=== PATIENT | female | born 1955 | race Caucasian/White ===

== ENCOUNTER 2018-05-08 19:30 | Emergency (ER) | payer OTHER ==
--- OUTSIDE RECORDS SUMMARY | 2018-05-08 19:40 | XMS REPORT ---
:1955 External Reference #:[id number] Author Organization [facility] Address [address], [address] [place] [address] Phone [phone] Care Team Providers Name Role Phone Nikita Maldonado M.D. 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 Active Onset: 11/13/2016 Radial styloid tenosynovitis Nikita Maldonado M.D. Active Onset: 08/27/2017 Disorder of shoulder Nikita Maldonado M.D. Active Onset: 12/01/2017 Bicipital tenosynovitis Nikita Maldonado M.D. Active Onset: 04/14/2018 Essential hypertension RODGER Almanza Active Onset: 02/03/2018 Muscle pain Jacquelyn Sherman MD Active Onset: 02/03/2018 Disorder of bursa of shoulder region Jacquelyn Sherman MD Active Family History Date Family Member(s) Problem(s) Comments : (age 69 Father due to Parkinson's Years) Disease Father due to Unknown Causes () Mother due to Mouth Cancer () Mother Hypertension Mother Oral Cancer Children 4 First Son Oral Cancer Siblings 2 : (age 46 First Brother due to Skin Cancer Years) First Sister Skin Cancer Maternal Grandmother due to Mouth Cancer () Social History Type Date Description Comments Marital Status Lives With Daughters Diet Patient follows no dietary restrictions Occupation [address] Patient drives Cigarette Use Never Smoked Cigarettes ETOH Use Rarely consumes alcohol Smoking Patient has never smoked Allergies, Adverse Reactions, Alerts Date Description Reaction Status Severity Comments 07/24/2016 Bactrim active Medications Medication Date Status Form Strength Qnty SIG Indications Ordering Provider Lisinopril-Hyd Active Tablets 10-12.5mg 30tabs 1 by I10 Rosibel parnelllorothiazi Anabel White M.D. de every day Zyrtec Allergy Active Capsules 10mg 30caps 1 by J20Kaylene White M.D. every day Ibuprofen Active Tablets 400mg 1 tab Unknown 000 every 6 hours as needed Fluconazole Hx Tablets 150mg 2tabs 1 tab by N76.0 Rosibel Little - madelyn White M.D. today, 018 repeat in 1 week. Benzonatate Hx Capsules 200mg 30caps 1 tab by J20.Ismael Gleason 017 - madelyn White M.D. three 018 times a day Nasonex Hx Suspension 50mcg/Act 17gm 1 spray J2Jesus.Ismael Gleason 017 - each Lyndsey White nare 017 twice a day for 1 week, then reduce to once daily. Fluticasone Hx Suspension 50mcg/Act 9.900m 1 spray J20.9 Rosibel Propionate 017 - l to each Lyndsey White nare 018 every day Cefdinir Hx Capsules 300mg 20caps 1 tab by J01.00 Rosibel Schaffer - madelyn White M.D. twice a 017 day No Active Hx Unknown Medications 017 - 017 [place] Hx Tablets 5-325mg 25tabs 1 by Jd 017 - mouth Marianna, every 6 M.D. 017 hour as needed pain No Active Hx Unknown Medications 017 - 017 [place] Hx Tablets 5-325mg 40tabs 1 by Jd 016 - mouth Marianna, every M.D. 017 4-6 hour as needed pain Tylenol With Hx Tablets 300-30mg Unknown Codeine #3 000 - 016 Medications Administered in Office Medication Date Status Form Strength Qnty SIG Indications Ordering Provider Betamethasone Injection Natasha Acetate & Sodium 2018 Tino, Phosphate 3 MG PA Of Each Immunizations CPT Code Status Date Vaccine Lot # 11387 Given 07/28/2017 Influenza Virus Vaccine Quadrivalent Iiv4 Split Preser Free Id Vital Signs Date Vital Result Comment 04/14/2018 BP Systolic Sitting Right Arm 158 mmHg BP Diastolic Sitting Right Arm 78 mmHg Body Temperature 97.8 F Heart Rate 94 /min Height 62.5 inches 5'2.50" Weight 184.12 lb BMI (Body Mass Index) 33.1 kg/m2 BSA (Body Surface Area) 1.86 m2 [place] body weight in kilograms 51 O2 % BldC Oximetry 98 % 04/01/2018 BP Systolic Sitting Left Arm 134 mmHg BP Diastolic Sitting Left Arm 77 mmHg Body Temperature 97.6 F Heart Rate 75 /min Respiratory Rate 17 /min Height 62 inches 5'2" Weight 186.00 lb BMI (Body Mass Index) 34.0 kg/m2 BSA (Body Surface Area) 1.85 m2 [place] body weight in kilograms 50 O2 % BldC Oximetry 97 % 03/19/2018 BP Systolic 190 mmHg BP Diastolic 85 mmHg Body Temperature 97.6 F Heart Rate 62 /min Respiratory Rate 15 /min Height 62 inches 5'2" Weight 186.00 lb BMI (Body Mass Index) 34.0 kg/m2 BSA (Body Surface Area) 1.85 m2 [place] body weight in kilograms 50 O2 % BldC Oximetry 97 % room air Pain Level 4 02/03/2018 BP Systolic Sitting Left Arm 182 mmHg BP Diastolic Sitting Left Arm 93 mmHg Body Temperature 98.2 F Heart Rate 70 /min Height 63.5 inches 5'3.50" Weight 185.00 lb BMI (Body Mass Index) 32.3 kg/m2 BSA (Body Surface Area) 1.88 m2 [place] body weight in kilograms 53 01/28/2018 BP Systolic 188 mmHg BP Diastolic 97 mmHg Height 63.5 inches 5'3.50" Weight 182.00 lb BMI (Body Mass Index) 31.7 kg/m2 BSA (Body Surface Area) 1.87 m2 [place] body weight in kilograms 53 12/17/2017 BP Systolic Sitting Left Arm 148 mmHg BP Diastolic Sitting Left Arm 57 mmHg Heart Rate 73 /min Respiratory Rate 18 /min Height 63.5 inches 5'3.50" Weight 182.00 lb BMI (Body Mass Index) 31.7 kg/m2 BSA (Body Surface Area) 1.87 m2 [place] body weight in kilograms 53 11/10/2017 BP Systolic Sitting Right Arm 172 mmHg BP Diastolic Sitting Right Arm 84 mmHg Body Temperature 97.7 F Heart Rate 78 /min Height 63.5 inches 5'3.50" Weight 185.00 lb BMI (Body Mass Index) 32.3 kg/m2 BSA (Body Surface Area) 1.88 m2 [place] body weight in kilograms 53 O2 % BldC Oximetry 98 % 10/06/2017 BP Systolic 169 mmHg BP Diastolic 91 mmHg Body Temperature 97.3 F Heart Rate 89 /min Respiratory Rate 16 /min Height 63.5 inches 5'3.50" Weight 190.00 lb BMI (Body Mass Index) 33.1 kg/m2 BSA (Body Surface Area) 1.90 m2 [place] body weight in kilograms 53 10/05/2017 BP Systolic 142 mmHg BP Diastolic 84 mmHg Body Temperature 97.8 F Heart Rate 109 /min Respiratory Rate 18 /min Height 63.5 inches 5'3.50" Weight 191.38 lb BMI (Body Mass Index) 33.4 kg/m2 BSA (Body Surface Area) 1.91 m2 [place] body weight in kilograms 53 O2 % BldC Oximetry 97 % 09/23/2017 BP Systolic 152 mmHg BP Diastolic 90 mmHg Body Temperature 97.0 F Heart Rate 86 /min Height 63.5 inches 5'3.50" Weight 190.00 lb BMI (Body Mass Index) 33.1 kg/m2 BSA (Body Surface Area) 1.90 m2 [place] body weight in kilograms 53 O2 % BldC Oximetry 97 % 07/28/2017 BP Systolic Sitting Right Arm 172 mmHg BP Diastolic Sitting Right Arm 90 mmHg Body Temperature 97.7 F Heart Rate 68 /min Height 63.5 inches 5'3.50" Weight 190.38 lb BMI (Body Mass Index) 33.2 kg/m2 BSA (Body Surface Area) 1.90 m2 [place] body weight in kilograms 53 07/24/2016 BP Systolic Sitting Right Arm 154 mmHg BP Diastolic Sitting Right Arm 80 mmHg Height 63.25 inches 5'3.25" Weight 189.00 lb BMI (Body Mass Index) 33.2 kg/m2 BSA (Body Surface Area) 1.89 m2 [place] body weight in kilograms 53 Results Test Date Test Result H/L Range Note Urine Dipstick 04/14/2018 Ua Color yellow Yellow Ua Clarity clear Clear Ua Leuko trace Negative Ua Nitrite negative Negative Ua Urobilinogen 0.2 0.2 - 1.0 E.U./dL Ua Protein negative Negative Ua PH 6.0 Low 6.5-7.5 Ua Blood negative Negative Ua Specific [place] 1.025 1.010-1.030 Ua Ketones negative Negative Ua Bilirubin negative Negative Ua Glucose negative Negative Procedures Date CPT Code Description Status 03/19/201899564 Injection:Tendon Sheath,Lig. Cyst Completed 01/28/2018 Aspiration/Injection joint Completed intermediate(wrist/ankle/elbow/olbursa 12/01/201712270 Injection:Tendon Sheath,Lig. Cyst Completed 10/06/201749873 Injection:Tendon Sheath,Lig. Cyst Completed 05/11/2017 Injection, Tendon Origin/Insertion Completed 05/11/201705162 Injection:Tendon Sheath,Lig. Cyst Completed 11/13/201642826 Injection:Tendon Sheath,Lig. Cyst Completed 11/12/201611087 Radiology, Shoulder: Two Views (Sso) Completed 11/12/201623054 Injection:Tendon Sheath,Lig. Cyst Completed 10/02/201680531 Injection, Tendon Origin/Insertion Completed 09/30/2016 16731 Radiology, Shoulder: Two Views (Sso) Completed 08/25/2016 30561 Radiology, Shoulder: Two Views (Sso) Completed 08/07/2016 67600 Radiology, Hand: Two Views Completed 08/07/2016 47598 Radiology, Hand: Two Views Completed 08/07/2016 83861 Radiology, Shoulder: Two Views (Sso) Completed 08/07/2016 43759 Radiology, Shoulder: Two Views (Sso) Completed 07/24/2016 36379 FX Greater Tuberosity W/O Manipulation Completed 07/24/2016 79033 Humerus Fracture closed w/o manipulation Completed 09/28/2014 Mammogram Completed 09/28/2012 Colonoscopy Completed 05/02/2011 23275 Holter Monitor 24HR Inter/Report Completed Encounters Type Date Location Provider CPT E/M Dx Office Visit 04/01/2018 10:30a [place] [address] M65.4 M75.102 Office Visit 02/03/2018 10:30a Physical Medicine [place] [address] M75.22 Infectious Disease M77.12 M75.102 M79.1 Office Visit 01/28/2018 10:45a Orthopaedic Office Nikita Maldonado M.D. 27489 M77.12 Office Visit 12/17/2017 11:15a Orthopaedic Office Nikita Maldonado M.D. 46481 M75.22 Office Visit 12/01/2017 10:45a Orthopaedic Office Nikita Maldonado M.D. 07524 M75.22 Office Visit 11/10/2017 10:30a Family Medicine RODGER Almanza 72163 Z00.01 I10 N76.0 K64.4 Z12.4 Z12.31 Z13.820 Office Visit 10/06/2017 10:45a Orthopaedic Office Nikita Maldonado M.D. 39636 M65.4 M75.42 Office Visit 10/05/2017 10:00a Family Medicine RODGER Almanza 47807 R03.0 Z85.820 J20.9 M75.42 Office Visit 09/23/2017 10:00a Family RODGER Butler 39771 R03.0 Z85.820 J20.9 Office Visit 08/27/2017 10:45a Orthopaedic Office Nikita Maldonado M.D. 90848 M75.42 Office Visit 07/28/2017 1:00p Family RODGER Butler 02217 R03.0 J01.00 Z85.820 Z23 Office Visit 05/11/2017 2:45p Orthopaedic Office Nikita Maldonado M.D. 72787 M77.12 M65.4 Office Visit 01/15/2017 11:00a Orthopaedic Office Nikita Maldonado M.D. 86996 S42.202D S63.650A Office Visit 11/12/2016 10:45a Orthopaedic Office Nikita Maldonado M.D. 65673 S42.202D M65.4 Office Visit 08/07/2016 10:45a Orthopaedic Office RODGER Barrios 53905 S42.202D S63.650A Office Visit 10/25/2012 1:38p [place] [address] 789.00 Plan of Care Future Appointment(s):05/04/2018 8:45 am - Yuli Coffman MD at Operating Room05/13/2018 9:00 am - Yuli Coffman MD at Orthopaedic Vabmbo7504/23/2018 9: 45 am - Yuli Coffman MD at Orthopaedic Ydtrjw4104/14/2018 - BERNA Almanza65.4 Radial styloid tenosynovitis [de Quervain]Comments:Patient is in good health. Low risk for a low risk for surgery. Urine cultures is pending due to leukocytes. Will treat if indicated.I10 Essential (primary) hypertensionComments :Please try to take your medication daily. I am increasing the dose to 20/25. It may cause some dizziness at first. But, this should improve as you get used to being on the medication and this new dose.Watch the salt in the diet and continue to try to exercise and watch salt intake.Follow up:3 tcobrgE29.5 Neoplasm of uncertain behavior of skinComments:It is time for you to go back to the [employer]. \\Please call to set up an appointment with RODGER Shafer on [facility]. [phone].R30.0 DysuriaComments:Clear fluids. Cranberry juice. Limit sugars.Wash and rinse thoroughly. Wipe front to back.Frequent bathroom breaks. Avoid bubble baths. Avoid tight fitting pants and synthetic underwear. Labs are pending. Will treat as indicated.
--- OUTSIDE RECORDS SUMMARY | 2018-05-08 19:40 | XMS REPORT ---
:1955 External Reference #:[id number] Author Organization [facility] Address [address], [address] [place] [address] Phone [phone] Care Team Providers Name Role Phone Nikita Maldonado M.D. 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 Lani Alfonso PA Primary Care Physician Unavailable Payers Type Date Identification Numbers Payment Provider Subscriber Commercial Policy Number: [id number] [employer] Mary Han PayID: [id number] [address] [place] [address] Problems Date Description Provider Status Onset: 07/24/2016 [...] Diet Patient follows no dietary restrictions Occupation [employer] Patient drives Cigarette Use Never Smoked Cigarettes ETOH Use Rarely consumes alcohol Smoking Patient has never smoked Allergies, Adverse Reactions, Alerts Date Description Reaction Status Severity Comments 07/24/2016 Bactrim active Medications Medication Date Status Form Strength Qnty SIG Indications Ordering Provider Lisinopril-Hy 04/16/ Active Tablets 20-25mg 30tabs take one I10 Rosibel drochlorothia 2018 tablet by Lyndesy White mouth every day for high blood pressure Zyrtec 10/05/ Active Capsules 10mg 30caps 1 by mouth J20.Ismael Gleason Allergy 2018 every day Lyndsey White Ibuprofen / Active Tablets 400mg 1 tab Unknown 0000 every 6 hours as needed Lisinopril-Hy 11/10/ Hx Tablets 10-12.5mg 30tabs 1 by mouth I10 Rosibel drochlorothia 2017 - every day Lyndsey White 2017 Fluconazole 11/10/ Hx Tablets 150mg 2tabs 1 tab by N76.0 Rosibel 2017 - mouth Lyndsey White 11/17/ , 2018 repeat in 1 week. Benzonatate 09/23/ Hx Capsules 200mg 30caps 1 tab by Travis Gleason 2016 - mouth Lyndsey White 10/03/ three 2018 times a day Nasonex 09/23/ Hx Suspension 50mcg/Act 17gm 1 spray J2Jesus.Ismael Gleason 2016 - each adri White M.D. 09/23/ twice a 2016 day for 1 week, then reduce to once daily. Fluticasone 09/23/ Hx Suspension 50mcg/Act 9.900m 1 spray to Travis Gleason Propionate 2016 - l each adri White M.D. 10/03/ every day 2018 Cefdinir 07/28/ Hx Capsules 300mg 20caps 1 tab by J01.00 Rosibel 2017 - madelyn White M.D. 08/07/ twice a 2017 day No Active 11/12/ Hx Unknown Medications 2016 - 2016 [place] 10/13/ Hx Tablets 5-325mg 25tabs 1 by madelyn Miles 2016 - every 6 Marianna, 11/11/ hour as M.D. 2016 needed pain No Active 09/30/ Hx Unknown Medications 2016 - 2016 [place] 08/05/ Hx Tablets 5-325mg 40tabs 1 by mouth Jd 2015 - every 4-6 Marianna, 09/29/ hour as M.D. 2016 needed pain Tylenol With / Hx Tablets 300-30mg Unknown Codeine #3 0000 - 2015 Medications Administered in Office Medication Date Status Form Strength Qnty SIG Indications Ordering Provider Betamethasone 03/19/ Injection Natasha Acetate & Sodium 2018 Tino, Phosphate 3 MG PA Of Each Immunizations CPT Code Status Date Vaccine Lot # [id number] Given 07/28/2017 Influenza Virus Vaccine Quadrivalent Iiv4 Split Preser Free Id Vital Signs Date Vital Result Comment 04/23/2018 BP Systolic Sitting Left Arm 99 mmHg BP Diastolic Sitting Left Arm 64 mmHg Body Temperature 97.9 F Heart Rate 73 /min Respiratory Rate 17 /min Height 62.5 inches 5'2.50" Weight 184.00 lb BMI (Body Mass Index) 33.1 kg/m2 BSA (Body Surface Area) 1.86 m2 [place] body weight in kilograms 51 O2 % BldC Oximetry 96 % 04/14/2018 BP Systolic Sitting Right Arm 158 mmHg BP Diastolic Sitting Right Arm 78 mmHg Body Temperature 97.8 F Heart Rate 94 /min Height 62.5 inches 5'2.50" Weight 184.12 lb BMI (Body Mass Index) 33.1 kg/m2 BSA (Body Surface Area) 1.86 m2 [place] body weight in kilograms 51 O2 % BldC Oximetry 98 % 04/01/2018 BP Systolic Sitting Left Arm 134 mmHg BP Diastolic Sitting Left Arm 77 mmHg Body Temperature 97.6 F Heart Rate 75 /min Respiratory Rate 17 /min Height 62 inches 5'2" Weight 186.00 lb BMI (Body Mass Index) 34.0 kg/m2 BSA (Body Surface Area) 1.85 m2 [place] body weight in kilograms 50 O2 % BldC Oximetry 97 % 03/19/2018 BP Systolic 190 mmHg BP Diastolic 85 mmHg Body Temperature 97.6 F Heart Rate 62 /min Respiratory Rate 15 /min Height 62 inches 5'2" Weight 186.00 lb BMI (Body Mass Index) 34.0 kg/m2 BSA (Body Surface Area) 1.85 m2 [place] body weight in kilograms 50 O2 % BldC Oximetry 97 % room air Pain Level 4 02/03/2018 BP Systolic Sitting Left Arm 182 mmHg BP Diastolic Sitting Left Arm 93 mmHg Body Temperature 98.2 F Heart Rate 70 /min Height 63.5 inches 5'3.50" Weight 185.00 lb BMI (Body Mass Index) 32.3 kg/m2 BSA (Body Surface Area) 1.88 m2 [place] body weight in kilograms 53 01/28/2018 BP Systolic 188 mmHg BP Diastolic 97 mmHg Height 63.5 inches 5'3.50" Weight 182.00 lb BMI (Body Mass Index) 31.7 kg/m2 BSA (Body Surface Area) 1.87 m2 [employer] body weight in kilograms 53 12/17/2017 BP Systolic Sitting Left Arm 148 mmHg BP Diastolic Sitting Left Arm 57 mmHg Heart Rate 73 /min Respiratory Rate 18 /min Height 63.5 inches 5'3.50" Weight 182.00 lb BMI (Body Mass Index) 31.7 kg/m2 BSA (Body Surface Area) 1.87 m2 [place] body weight in kilograms 53 11/10/2017 BP Systolic Sitting Right Arm 172 mmHg BP Diastolic Sitting Right Arm 84 mmHg Body Temperature 97.7 F Heart Rate 78 /min Height 63.5 inches 5'3.50" Weight 185.00 lb BMI (Body Mass Index) 32.3 kg/m2 BSA (Body Surface Area) 1.88 m2 [place] body weight in kilograms 53 O2 % BldC Oximetry 98 % 10/06/2017 BP Systolic 169 mmHg BP Diastolic 91 mmHg Body Temperature 97.3 F Heart Rate 89 /min Respiratory Rate 16 /min Height 63.5 inches 5'3.50" Weight 190.00 lb BMI (Body Mass Index) 33.1 kg/m2 BSA (Body Surface Area) 1.90 m2 [place] body weight in kilograms 53 10/05/2017 BP Systolic 142 mmHg BP Diastolic 84 mmHg Body Temperature 97.8 F Heart Rate 109 /min Respiratory Rate 18 /min Height 63.5 inches 5'3.50" Weight 191.38 lb BMI (Body Mass Index) 33.4 kg/m2 BSA (Body Surface Area) 1.91 m2 [place] body weight in kilograms 53 O2 % BldC Oximetry 97 % 09/23/2017 BP Systolic 152 mmHg BP Diastolic 90 mmHg Body Temperature 97.0 F Heart Rate 86 /min Height 63.5 inches 5'3.50" Weight 190.00 lb BMI (Body Mass Index) 33.1 kg/m2 BSA (Body Surface Area) 1.90 m2 [place] body weight in kilograms 53 O2 % BldC Oximetry 97 % 07/28/2017 BP Systolic Sitting Right Arm 172 mmHg BP Diastolic Sitting Right Arm 90 mmHg Body Temperature 97.7 F Heart Rate 68 /min Height 63.5 inches 5'3.50" Weight 190.38 lb BMI (Body Mass Index) 33.2 kg/m2 BSA (Body Surface Area) 1.90 m2 [employer] body weight in kilograms 53 07/24/2016 BP Systolic Sitting Right Arm 154 mmHg BP Diastolic Sitting Right Arm 80 mmHg Height 63.25 inches 5'3.25" Weight 189.00 lb BMI (Body Mass Index) 33.2 kg/m2 BSA (Body Surface Area) 1.89 m2 [place] body weight in kilograms 53 Results Test Date Test Result H/L Range Note Urine Culture 04/14/2018 Urine Culture URETHRAL ZAYRA 1 Quantity 10,000 - 50,000 <SEE NOTE> 1, 2 Urine Dipstick 04/14/2018 Ua Color yellow Yellow Ua Clarity clear Clear Ua Leuko trace Negative Ua Nitrite negative Negative Ua Urobilinogen 0.2 0.2 - 1.0 E.U./dL Ua Protein negative Negative Ua PH 6.0 Low 6.5-7.5 Ua Blood negative Negative Ua Specific [place] 1.025 1.010-1.030 Ua Ketones negative Negative Ua Bilirubin negative Negative Ua Glucose negative Negative 1 R30.0 2 10,000 - 50,000 CFU/mL Procedures Date CPT Code Description Status 03/19/2018 Injection:Tendon Sheath,Lig. Cyst Completed 01/28/2018 Aspiration/Injection joint Completed intermediate(wrist/ankle/elbow/olbursa 12/01/2017 Injection:Tendon Sheath,Lig. Cyst Completed 10/06/2017 Injection:Tendon Sheath,Lig. Cyst Completed 05/11/2017 Injection, Tendon Origin/Insertion Completed 05/11/2017 07372 Injection:Tendon Sheath,Lig. Cyst Completed 11/13/2016 Injection:Tendon Sheath,Lig. Cyst Completed 11/12/2016 77574 Radiology, Shoulder: Two Views (Sso) Completed 11/12/2016 Injection:Tendon Sheath,Lig. Cyst Completed 2016 Injection, Tendon Origin/Insertion Completed 09/30/2016 00197 Radiology, Shoulder: Two Views (Sso) Completed 08/25/2016 14213 Radiology, Shoulder: Two Views (Sso) Completed 08/07/2016 95482 Radiology, Hand: Two Views Completed 08/07/2016 54566 Radiology, Hand: Two Views Completed 08/07/2016 93838 Radiology, Shoulder: Two Views (Sso) Completed 08/07/2016 57440 Radiology, Shoulder: Two Views (Sso) Completed 07/24/2016 95239 FX Greater Tuberosity W/O Manipulation Completed 07/24/2016 47263 Humerus Fracture closed w/o manipulation Completed 09/28/2014 Mammogram Completed 09/28/2012 Colonoscopy Completed 05/02/2011 08005 Holter Monitor 24HR Inter/Report Completed Encounters Type Date Location Provider CPT E/M Dx Office Visit 04/14/2018 3:30p Family Medicine RODGER Almanza 41211 M65.4 I10 D48.5 R30.0 Office Visit 04/01/2018 10:30a [place] [address] M65.4 M75.102 Office Visit 02/03/2018 10:30a Physical Medicine [place] [address] M75.22 Infectious Disease M77.12 M75.102 M79.1 Office Visit 01/28/2018 10:45a Orthopaedic Office Nikita Maldonado M.D. 80915 M77.12 Office Visit 12/17/2017 11:15a Orthopaedic Office Nikita Maldonado M.D. 04203 M75.22 Office Visit 12/01/2017 10:45a Orthopaedic Office Nikita Maldonado M.D. 27047 M75.22 Office Visit 11/10/2017 10:30a Family Medicine RODGER Almanza 01956 Z00.01 I10 N76.0 K64.4 Z12.4 Z12.31 Z13.820 Office Visit 10/06/2017 10:45a Orthopaedic Office Nikita Maldonado M.D. 95670 M65.4 M75.42 Office Visit 10/05/2017 10:00a Family Medicine RODGER Almanza 88596 R03.0 Z85.820 J20.9 M75.42 Office Visit 09/23/2017 10:00a Family Medicine RODGER Almanza 21579 R03.0 Z85.820 J20.9 Office Visit 08/27/2017 10:45a Orthopaedic Office Nikita Maldonado M.D. 98816 M75.42 Office Visit 07/28/2017 1:00p Family Medicine RODGER Almanza 18475 R03.0 J01.00 Z85.820 Z23 Office Visit 05/11/2017 2:45p Orthopaedic Office Nikita Maldonado M.D. 78782 M77.12 M65.4 Office Visit 01/15/2017 11:00a Orthopaedic Office Nikita Maldonado M.D. 91538 S42.202D S63.650A Office Visit 11/12/2016 10:45a Orthopaedic Office Nikita Maldonado M.D. 85765 S42.202D M65.4 Office Visit 08/07/2016 10:45a Orthopaedic Office RODGER Barrios 10660 S42.202D S63.650A Office Visit 10/25/2012 1:38p [place] [address] 789.00 Plan of Care Future Appointment(s):07/19/2018 10:45 am - RODGER Almanza at Family Lwgofkwx58/07/2018 8:45 am - Yuli Coffman MD at Operating Room05/13/2018 9: 00 am - Yuli Coffman MD at Orthopaedic Zqsozb6304/23/2018 - Yuli Coffman MDM65.4 Radial styloid tenosynovitis [de Quervain]
--- OUTSIDE RECORDS SUMMARY | 2018-05-08 19:40 | XMS REPORT ---
:1955 External Reference #:[id number] Author Organization [facility] Address [address], [address] [place] [address] Phone [phone] Care Team Providers Name Role Phone Nikita Maldonado M.D. 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 Cigarette Use Never Smoked Cigarettes ETOH Use Rarely consumes alcohol Smoking Patient has never smoked Allergies, Adverse Reactions, Alerts Date Description Reaction Status Severity Comments 07/24/2016 Bactrim active Medications Medication Date Status Form Strength Qnty SIG Indications Ordering Provider Lisinopril-Hy 04/16/ Active Tablets 20-25mg 30tabs take one I10 Rosibel drochlorothia 2018 tablet by Lyndsey White mouth every day for high blood [...] 11/12/ Hx Unknown Medications 2016 - 2016 [place] 10/13/ Hx Tablets 5-325mg 25tabs 1 by madelyn Miles 2016 - every 6 [place], 11/11/ hour as M.D. 2016 needed pain No Active 09/30/ Hx Unknown Medications 2016 - 2016 [place] 08/05/ Hx Tablets 5-325mg 40tabs 1 by mouth Jd 2015 - every 4-6 [place]na, 09/29/ hour as M.D. 2016 needed pain Tylenol With / Hx Tablets 300-30mg Unknown Codeine #3 0000 - 2015 Medications Administered in Office Medication Date Status Form Strength Qnty SIG Indications Ordering Provider Betamethasone 03/19/ Administered Injection Natasha Acetate & Sodium 2018 T[place], Phosphate 3 MG PA Of Each Immunizations CPT Code Status Date Vaccine Lot # [id number] Given 07/28/2017 Influenza Virus Vaccine Quadrivalent Iiv4 Split Preser Free Id Vital Signs Date Vital Result Comment 04/14/2018 BP Systolic Sitting Right Arm 158 mmHg BP Diastolic Sitting Right Arm 78 mmHg Body Temperature 97.8 F Heart Rate 94 /min Height 62.5 inches 5'2.50" Weight 184.12 lb BMI (Body Mass Index) 33.1 kg/m2 BSA (Body Surface Area) 1.86 m2 [place] body weight in kilograms 51 O2 % BldC Oximetry 98 % 04/01/2018 BP Systolic Sitting Left Arm 134 mmHg BP Diastolic Sitting Left Arm 77 mmHg Body Temperature 97.6 F Heart Rate 75 /min Respiratory Rate 17 /min Height 62 inches 5'2" Weight 186.00 lb BMI (Body Mass Index) 34.0 kg/m2 BSA (Body Surface Area) 1.85 m2 [place] body weight in kilograms 50 O2 % BldC Oximetry 97 % 03/19/2018 BP Systolic 190 mmHg BP Diastolic 85 mmHg Body Temperature 97.6 F Heart Rate 62 /min Respiratory Rate 15 /min Height 62 inches 5'2" Weight 186.00 lb BMI (Body Mass Index) 34.0 kg/m2 BSA (Body Surface Area) 1.85 m2 [place] body weight in kilograms 50 O2 % BldC Oximetry 97 % room air Pain Level 4 02/03/2018 BP Systolic Sitting Left Arm 182 mmHg BP Diastolic Sitting Left Arm 93 mmHg Body Temperature 98.2 F Heart Rate 70 /min Height 63.5 inches 5'3.50" Weight 185.00 lb BMI (Body Mass Index) 32.3 kg/m2 BSA (Body Surface Area) 1.88 m2 [place] body weight in kilograms 53 01/28/2018 BP Systolic 188 mmHg BP Diastolic 97 mmHg Height 63.5 inches 5'3.50" Weight 182.00 lb BMI (Body Mass Index) 31.7 kg/m2 BSA (Body Surface Area) 1.87 m2 [place] body weight in kilograms 53 12/17/2017 BP Systolic Sitting Left Arm 148 mmHg BP Diastolic Sitting Left Arm 57 mmHg Heart Rate 73 /min Respiratory Rate 18 /min Height 63.5 inches 5'3.50" Weight 182.00 lb BMI (Body Mass Index) 31.7 kg/m2 BSA (Body Surface Area) 1.87 m2 [place] body weight in kilograms 53 11/10/2017 BP Systolic Sitting Right Arm 172 mmHg BP Diastolic Sitting Right Arm 84 mmHg Body Temperature 97.7 F Heart Rate 78 /min Height 63.5 inches 5'3.50" Weight 185.00 lb BMI (Body Mass Index) 32.3 kg/m2 BSA (Body Surface Area) 1.88 m2 [place] body weight in kilograms 53 O2 % BldC Oximetry 98 % 10/06/2017 BP Systolic 169 mmHg BP Diastolic 91 mmHg Body Temperature 97.3 F Heart Rate 89 /min Respiratory Rate 16 /min Height 63.5 inches 5'3.50" Weight 190.00 lb BMI (Body Mass Index) 33.1 kg/m2 BSA (Body Surface Area) 1.90 m2 [place] body weight in kilograms 53 10/05/2017 BP Systolic 142 mmHg BP Diastolic 84 mmHg Body Temperature 97.8 F Heart Rate 109 /min Respiratory Rate 18 /min Height 63.5 inches 5'3.50" Weight 191.38 lb BMI (Body Mass Index) 33.4 kg/m2 BSA (Body Surface Area) 1.91 m2 [place] body weight in kilograms 53 O2 % BldC Oximetry 97 % 09/23/2017 BP Systolic 152 mmHg BP Diastolic 90 mmHg Body Temperature 97.0 F Heart Rate 86 /min Height 63.5 inches 5'3.50" Weight 190.00 lb BMI (Body Mass Index) 33.1 kg/m2 BSA (Body Surface Area) 1.90 m2 [place] body weight in kilograms 53 O2 % BldC Oximetry 97 % 07/28/2017 BP Systolic Sitting Right Arm 172 mmHg BP Diastolic Sitting Right Arm 90 mmHg Body Temperature 97.7 F Heart Rate 68 /min Height 63.5 inches 5'3.50" Weight 190.38 lb BMI (Body Mass Index) 33.2 kg/m2 BSA (Body Surface Area) 1.90 m2 [place] body weight in kilograms 53 07/24/2016 BP Systolic Sitting Right Arm 154 mmHg BP Diastolic Sitting Right Arm 80 mmHg Height 63.25 inches 5'3.25" Weight 189.00 lb BMI (Body Mass Index) 33.2 kg/m2 BSA (Body Surface Area) 1.89 m2 [place] body weight in kilograms 53 Results Test [...] 6.5-7.5 Ua Blood negative Negative Ua Specific [place] 1.025 1.010-1.030 Ua Ketones negative Negative Ua Bilirubin negative Negative Ua Glucose negative Negative 1 R30.0 2 10,000 - 50,000 CFU/mL Procedures Date CPT Code Description Status 03/19/2018 Injection:Tendon Sheath,Lig. Cyst Completed 01/28/2018 Aspiration/Injection joint Completed intermediate(wrist/ankle/elbow/olbursa 12/01/2017 Injection:Tendon Sheath,Lig. Cyst Completed 10/06/2017 Injection:Tendon Sheath,Lig. Cyst Completed 05/11/2017 Injection, Tendon Origin/Insertion Completed 05/11/2017 Injection:Tendon Sheath,Lig. Cyst Completed 11/13/201639816 Injection:Tendon Sheath,Lig. Cyst Completed 11/12/2016 47417 Radiology, Shoulder: Two Views (Sso) Completed 11/12/201695557 Injection:Tendon Sheath,Lig. Cyst Completed 2016 Injection, Tendon Origin/Insertion Completed 09/30/2016 37816 Radiology, Shoulder: Two Views (Sso) Completed 08/25/2016 85782 Radiology, Shoulder: Two Views (Sso) Completed 08/07/2016 45387 Radiology, Hand: Two Views Completed 08/07/2016 63041 Radiology, Hand: Two Views Completed 08/07/2016 80696 Radiology, Shoulder: Two Views (Sso) Completed 08/07/2016 25512 Radiology, Shoulder: Two Views (Sso) Completed 07/24/2016 18017 FX Greater Tuberosity W/O Manipulation Completed 07/24/2016 28003 Humerus Fracture closed w/o manipulation Completed 09/28/2014 Mammogram Completed 09/28/2012 Colonoscopy Completed 05/02/2011 48071 Holter Monitor 24HR Inter/Report Completed Encounters Type Date Location Provider CPT E/M Dx Office Visit 04/14/2018 3:30p Family Medicine ROD[facility] Almanza 6[address]52 M65.4 I10 D48.5 R30.0 Office Visit 04/01/2018 10:30a [place] [address] M65.4 M75.102 Office Visit 02/03/2018 10:30a Physical Medicine & [place] [address] M75.22 Infectious Disease M77.12 M75.102 M79.1 Office Visit 01/28/2018 10:45a Orthopaedic Office Nikita Maldonado M.D. 08864 M77.12 Office Visit 12/17/2017 11:15a Orthopaedic Office Nikita Maldonado M.D. 32621 M75.22 Office Visit 12/01/2017 10:45a Orthopaedic Office Nikita Maldonado M.D. 98502 M75.22 Office Visit 11/10/2017 10:30a Family Medicine ROD[facility] Almanza 10961 Z00.01 I10 N76.0 K64.4 Z12.4 Z12.31 Z13.820 Office Visit 10/06/2017 10:45a Orthopaedic Office Nikita Maldonado M.D. 66506 M65.4 M75.42 Office Visit 10/05/2017 10:00a Family [facility] Butler 12358 R03.0 Z85.820 J20.9 M75.42 Office Visit 09/23/2017 10:00a Family Medicine ROD[facility] Almanza 22031 R03.0 Z85.820 J20.9 Office Visit 08/27/2017 10:45a Orthopaedic Office Nikita Maldonado M.D. 92408 M75.42 Office Visit 07/28/2017 1:00p Family Medicine ROD[facility] Almanza 87039 R03.0 J01.00 Z85.820 Z23 Office Visit 05/11/2017 2:45p Orthopaedic Office Nikita Maldonado M.D. 27291 M77.12 M65.4 Office Visit 01/15/2017 11:00a Orthopaedic Office Nikita Maldonado M.D. 40497 S42.202D S63.650A Office Visit 11/12/2016 10:45a Orthopaedic Office Nikita Maldonado M.D. 51006 S42.202D M65.4 Office Visit 08/07/2016 10:45a Orthopaedic Office RODGER Barrios 24464 S42.202D S63.650A Office Visit 10/25/2012 1:38p [place] [address] 789.00 Plan of Care Future Appointment(s):07/19/2018 10:45 am - RODGER Almanza at Family Wmyuqovy28/07/2018 8:45 am - Yuli Coffman MD at Operating Room05/13/2018 9: 00 am - Yuli Coffman MD at Orthopaedic Qbpxie0504/23/2018 9:45 am - Yuli Coffman MD at Orthopaedic Gnzuro0304/14/2018 - Lani Alfonso PAM65.4 Radial styloid tenosynovitis [de Quervain]Comments:Patient is in good health. Low risk for a low risk for surgery. Urine cultures is pending due to leukocytes. Will treat if indicated.I10 Essential (primary) hypertensionComments:Please try to take your medication daily. I am increasing the dose to 20/25. It may cause some dizziness at first. 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 \\ Please call to set up an appointment with RODGER Shafer [facility]. [phone].R30.0 DysuriaComments:Clear fluids. Cranberry juice. Limit sugars.Wash and rinse thoroughly. Wipe front to back.Frequent bathroom breaks. Avoid bubble baths. Avoid tight fitting pants and synthetic underwear. Labs are pending. Will treat as indicated.
[2018-05-08 19:54] VITALS: BP 135/65
--- NOTE | 2018-05-08 20:26 | UC ---
Nausea/Vomiting/Diarrhea HPI - HPI Summary HPI Summary: Patient is a 65-year-old who present today for diarrhea that started yesterday. She had right hand surgery with tendon repair by Dr. Coffman at [facility] on 05/04/18 after which she was taking pain medications and had no bowel movements since the surgery. Today the work she took laxatives and prune juice with increased bowel movements. Denies any associated abdominal pain but she notices some rectal pain. Denies any rectal bleeding. No nausea or vomiting reported. Today she had multiple bowel movements but today she had only 3 bowel movements , it's mainly watery without any bleeding or pus. She took the prune juice today as well. No sick contacts . No skin rash. Denies any fever, chills, cough chest pain or shortness of breath . No diaphoresis. - History of Current Complaint Chief Complaint: UCGI Stated Complaint: DIARRHEA Time Seen by Provider: 05/08/18 20:07 Hx Obtained From: Patient Pain Intensity: 5 - Allergies/Home Medications Allergies/Adverse Reactions: Allergies Allergy/AdvReac Type Severity Reaction Status Date / Time sulfamethoxazole Allergy Unknown Verified 05/08/18 19:49 [From Bactrim] Reaction Details trimethoprim [From Bactrim] Allergy Unknown Verified 05/08/18 19:49 Reaction Details Home Medications: Home Medications Blood Pressure Med Unknown 05/08/18 [History] Ibuprofen 400 mg PO Q12HR 05/08/18 [History Confirmed 05/08/18] Magnesium Hydroxide LIQ* [Milk of Magnesia LIQ*] 30 ml PO DAILY 05/08/18 [ History Confirmed 05/08/18] PMH/Surg Hx/FS Hx/Imm Hx Previously Healthy: Yes Other Endocrine History: negative Cardiovascular History: Hypertension Other Cardiovascular History: negative Other Respiratory History: negative Other GI/ History: negative Other Neurological History: negative Other Psychological History: negative Cancer History: Other Other Cancer History: malignant melanoma - Surgical History Surgical History: Yes Surgery Procedure, Year, and Place: malignant melenoma x3, thigh, low back. TENDON REPAIR RIGHT THUMB. LEFT KNEE - Social History Alcohol Use: Rare Substance Use Type: None Smoking Status (MU): Never Smoked Tobacco Review of Systems Constitutional: Negative Skin: Negative Eyes: Negative ENT: Negative Respiratory: Negative Cardiovascular: Negative Gastrointestinal: Abdominal Pain - Now resolved., Diarrhea - Watery, improving, Other - Rectal pain without any bleeding Genitourinary: Negative Motor: Negative Neurovascular: Negative Musculoskeletal: Negative Neurological: Negative Psychological: Negative Is Patient Immunocompromised?: No All Other Systems Reviewed And Are Negative: Yes Physical Exam - Summary Physical Exam Summary: Physical Exam: Const: Appears well. No signs of apparent distress present. Alert and oriented x 3. Musculo: Walks with a normal gait. Head/Face: Atraumatic, normocephalic on inspection. Eyes: EOMI and PERRLA in both eyes. Conjunctivae clear. No discharge noted ENT: Hearing normal, TM normal appearing bilaterally . Respiratory: Respirations are unlabored. Lungs clear to auscultation bilaterally, no wheezing , rhonchi or rales noted . CVS: Regular rate and Rhythm, S1S2 normal , no murmurs identified. Extremities: Peripheral circulation is grossly normal. Pulses 2+ Abdomen : Soft non tender , nondistended , Bowel sounds present . No guarding , rebound tenderness or rigidity noted. Inspection of the rectal area: No external hemorrhoids were noted. She had mild erythema consistent with yeast infection in her perianal area and a small tear was noted around 2 ' clock position. No bleeding or discharge was noted. Skin: No lesions or rash located on the upper extremities or on the lower extremities. Neuro: Cranial nerves II to XII intact, motor and sensory intact. DTR Intact bilaterally. Mood is normal. Affect is normal. Triage Information Reviewed: Yes Vital Signs: Initial Vital Signs Temp 98.4 F 05/08/18 19:41 Pulse 88 05/08/18 19:41 Resp 16 05/08/18 19:41 BP 135/65 05/08/18 19:41 Pulse Ox 97 05/08/18 19:41 Vital Signs Reviewed: Yes Naus/Vom/Diarrhea Course/Dx - Course Course Of Treatment: During the visit today, we discussed the findings and further plan. Her symptoms appear likely secondary to use of laxatives after she was constipated from narcotics and her diarrhea is overall getting better. Her rectal pain appears secondary to the anal fissure along with some maceration of the skin secondary to yeast infection. I will prescribe the medication to the pharmacy . Patient expressed understanding . - Differential Dx/Diagnosis Provider Diagnoses: Diarrhea. Anal fissure. Mild yeast infection of perianal area Condition At Discharge: Stable Discharge - Sign-Out/Discharge Documenting (check all that apply): Patient Departure - Discharge Plan Condition: Stable Disposition: HOME Prescriptions: Clotrimazole/Betamethasone* [Lotrisone Cream*] 1 applic TOPICAL BID 7 Days #1 tube Hydrocortisone SUPP* [Anusol HC Supp*] 25 mg .SEE ORDER BID 10 Days #1 supp Patient Education Materials: Anal Fissure (ED), Acute Diarrhea (ED) Referrals: Lani Alfonso PA [Primary Care Provider] - (in 2 days ) Additional Instructions: Please start taking the medication as prescribed to the pharmacy . Hold off prune juice or laxatives. Keep yourself hydrated. Follow up with your primary care doctor in 2 to 3 days. Patients blood pressure slightly high in Urgent care today , plan follow up with PCP for better control Return to Urgent care / ER if symptoms get worse. - Billing Disposition and Condition Condition: STABLE Disposition: Home
== END 2018-05-08 20:43 | disposition home or self-care (01) ==
LOC: UCCORT 19:30
DX: R19.7 Diarrhea, unspecified (principal); K60.2 Anal fissure, unspecified; B37.2 Candidiasis of skin and nail; Z88.1 Allergy status to other antibiotic agents; Z85.820 Personal history of malignant melanoma of skin
CPT/HCPCS: 99202; G0463

== ENCOUNTER 2019-05-28 10:03 | Emergency (ER) | payer OTHER ==
--- OUTSIDE RECORDS SUMMARY | 2019-05-28 10:14 | XMS REPORT | Continuity of Care Document ---
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 Onset: 09/30/2016 Radial styloid tenosynovitis Nikita Maldonado M.D. Onset: 11/13/2016 Disorder of shoulder Nikita Maldonado M.D. Onset: 08/27/2017 Bicipital tenosynovitis Nikita Maldonado M.D. Onset: 12/01/2017 Disorder of bursa of shoulder region Jacquelyn Sherman MD Onset: 02/03/2018 Muscle pain Jacquelyn Sherman MD Onset: 02/03/2018 Essential hypertension Lani Alfonso PA Onset: 04/14/2018 Encounter for other preprocedural examination Yuli Coffman MD Onset: 04/23 Cervical spondylosis Yuli Coffman MD Onset: 06/10/2018 Disorder of bone Adalberto Avila MD Onset: 12/30/2018 Hyperlipidemia Adalberto Avila MD Onset: 05/16/2019 Obesity Adalberto Avila MD Onset: 05/16/2019 Social History Type Date Description Comments Sex Unknown Tobacco Use Start: Unknown Never Smoked Cigarettes ETOH Use Rarely consumes alcohol Tobacco Use Start: Unknown Patient has never smoked Recreational Drug Use Denies Drug Use Smoking Status Reviewed: 05/16/19 Patient has never smoked Allergies, Adverse Reactions, Alerts Active Allergies Reaction Severity Comments Date Bactrim 07/24/2016 Medications Active Medications SIG Qnty Indications Ordering Date Provider Estrogel apply 0.75mg qd 50gm N95.2 Adalberto Avila MD 05/16/2019 0.75mg/1.25 GM (0.06%) Gel Calcium 2 tabs by mouth 180tabs M85.80 Adalberto Avila MD 12/30/2018 Carbonate-Vitamin D3 every day as directed [id number] Tablets Blood Pressure Kit check BP once a 1units I10 Adalberto Avila MD 08/18/2018 Kit day and keep log Lisinopril-Hydrochlor take one tablet 90tabs I10 Adalberto Avila MD 2017 othiazide by mouth every 20-25mg day for high Tablets blood pressure Ibuprofen 1 tab every 6 Unknown 400mg Tablets hours as needed Clotrimazole Apply to effected Unknown Anti-Fungal area as directed. 1% Cream Medications Administered in Office Medication SIG Qnty Indications Ordering Provider Date Methylprednisolone acetate Yuli Coffman MD 11/23/2018 (Depomedrol) 80mg injection Injection Methylprednisolone acetate Yuli Coffman MD 08/12/2018 (Depomedrol) 80mg injection Injection Betamethasone Acetate & Sodium Natasha Jiménez PA 03/19/2018 Phosphate 3 MG Of Each Injection Immunizations CPT Code Status Date Vaccine Lot # [id number] Given 08/02/2018 Tdap injection [id number] Given 07/28/2017 Influenza Virus Vaccine Quadrivalent Iiv4 Split Preser Free Id U-DTaP Given Unknown DTaP,Unspecified 79604 Given Unknown Tdap injection Vital Signs Date Vital Result Comment 05/16/2019 9:59am BP Systolic 152 mmHg BP Diastolic 80 mmHg Body Temperature 98.1 F Heart Rate 89 /min Respiratory Rate 18 /min Height 63.25 inches 5'3.25" Weight 188.38 lb BMI (Body Mass Index) 33.1 kg/m2 BSA (Body Surface Area) 1.89 m2 [place] body weight in kilograms 53 kg O2 % BldC Oximetry 97 % Ra 12/30/2018 10:31am BP Systolic 122 mmHg BP Diastolic 80 mmHg Heart Rate 95 /min Respiratory Rate 17 /min Height 62 inches 5'2" Weight 184.00 lb BMI (Body Mass Index) 33.7 kg/m2 BSA (Body Surface Area) 1.85 m2 [place] body weight in kilograms 50 kg O2 % BldC Oximetry 99 % Results Test Date Facility Test Result H/L Range Note CBC 12/30/2018 [facility] [address] White Blood 6.2 K/uL Normal 3.1-10.7 1 W/Automated [address] [place] [address] [phone] Red Blood Count 4.90 M/uL Normal 3.90-5.40 Hemoglobin 14.8 gm/dL Normal 11.6-15.8 Hematocrit 45.2 % Normal 36.0-46.1 Mean Cell Volume 92.2 fl Normal 80.9-99.0 Mean Corpuscular HGB 30.2 pg Normal 25.9-32.7 Mean Corpuscular HGB Conc 32.7 g/dL Normal 30.8-34.3 Platelet Count 332 K/uL Normal 155-360 Red Cell Distri Width SD 44.5 fl Normal 36-47 Red Cell Distri Width %CV 13.1 % Normal 11.7-14.4 Mean Platelet Volume 11.3 fl Normal 8.9-12.4 Neut% 54.7 % Normal 40.4-72.8 Lymph % 34.8 % Normal 20.0-42.0 [place] % 7.1 % Normal 4.3-13.2 Eo% 2.2 % Normal 0.0-6.6 Bas% 0.6 % Normal 0.0-1.1 Immature Grans 0.6 % Normal 0.0-5.0 NRBC % 0.0 /100WBC < 10/ 100 WBC Neut# 3.41 K/uL Normal 1.8-7.0 Lymph # 2.17 K/uL Normal 1.0-4.0 [place] # 0.44 K/uL Normal 0.3-0.9 Eos # 0.14 K/uL Normal 0.0-0.5 Baso # 0.04 K/uL Normal 0.0-0.1 Immature Grans Absolute 0.04 K/uL NRBC # 0.00 K/uL Comprehensive Metabolic 12/30/[address] [facility] [address] Glucose 112 mg/dL High 74-[address] [place] [address] [phone] BUN 17 mg/dL Normal 7-18 Creatinine 0.9 mg/dL Normal 0.6-1.3 Glom Filtration Rate, Estimate >60 mL/min >60 If >60 mL/min >60 2 BUN/Creat 18.8 ratio Sodium 137 mmol/L Normal 136-145 Potassium 3.7 mmol/L Normal 3.5-5.1 Chloride 105 mmol/L Normal 98-107 Carbon Dioxide 29 mmol/L Normal 21-32 Anion Gap 3 mEq/L Low 8-16 Calcium 8.9 mg/dL Normal 8.5-10.1 Total Protein 7.6 g/dL Normal 6.4-8.2 Albumin 3.8 g/dL Normal 3.4-5.0 Globulin 3.8 g/dL Normal 1.9-4.3 Alb/Glob 1.0 ratio Bilirubin,Total 0.8 mg/dL Normal 0.2-1.0 Sgot/Ast 17 U/L Normal 15-37 SGPT/Alt 34 U/L Normal 12-78 Alkaline Phosphatase 119 U/L High 45-117 LDL Cholesterol 12/30/[address] [facility] [address] Cholesterol 229 mg/dL High < 200 3 Profile [address] [place] [address] [phone] Triglycerides 295 mg/dL High <150 4 HDL Cholesterol 40 mg/dL >40 5 LDL-Cholesterol 130 mg/dL < 100 6 Glycohemoglobin 12/30/[address] Glycohemoglobin 5.7 % Normal 4.2-6.3 7 A1c [address] [facility] (A1c) [place], [place] [id number] [phone] eAG 117 mg/dL T7/TSH 12/30/[address] T3 Uptake 31 % Normal 31-39 [address] [place] [address] [phone] Thyroxine (T4) 7.7 g/dL Normal 4.7-13.3 T7 2.39 g/dL Low 5.0-12.0 Thyroid Stim Hormone 2.65 uIU/mL Normal 0.30-4.20 1 Z13.6 2 Note: Persistent reduction for 3 months or more in an eGFR <60 mL/min/1.73 m2 defines CKD. Patients with eGFR values >/=60 mL/min/1.73 m2 may also have CKD if evidence of persistent proteinuria is present. The original MDRD equation for estimated GFR is not valid for patients less than 18 years of age. Additional information may be found at www.kdoqi.org. 3 Reference Guidelines*: Desirable: ........... < 200 mg/dL Borderline High: ..... 200-239 mg/dL High: ................ >= 240 mg/dL * The National Cholesterol Education Program (NCEP) 4 Reference Guidelines*: Normal: ............. < 150 mg/dL Borderline High: .... 150-199 mg/dL High: ............... 200-499 mg/dL Very High: .......... > 500 mg/dL * Source: National Cholesterol Education Program (NCEP) 5 Reference Guidelines*: Low HDL: ..... < 40 mg/dL Normal: ..... 40-60 mg/dL Desirable: ... > 60 mg/dL *The National Cholesterol Education Program(NCEP) 6 Reference Guidelines*: Optimal:........... <100 mg/dL Near Optimal....... 100-129 mg/dL Borderline High.... 130-159 mg/dL High............... 160-189 mg/dL Very High.......... >=190 mg/dL * Source: National Cholesterol Education Program (NCEP) 7 Elevated levels of HbA1c suggest the need for more aggressive treatment of glycemia. The [place] [employer] recommends that a primary goal of therapy should be a HbA1c of <7% and that physicians should re-evaluate the treatment regimen in patients with HbA1c values consistently >8%. Procedures Date Code Description Status 11/23/2018 97359 Radiology, Ankle Complete Completed 11/23/2018 41985 Asp./Injection major joint Completed 09/28/2012 51964375 Colonoscopy Completed Medical Devices Description No Information Available Encounters Type Date Location Provider Dx Diagnosis Office Visit 05/16/2019 Family Medicine Adalberto Avila MD E66.9 Obesity, unspecified 9:[address] I10 Essential (primary) hypertension E78.5 Hyperlipidemia, unspecified N95.2 Postmenopausal atrophic vaginitis Z12.31 Encntr screen mammogram for malignant neoplasm of breast Office Visit 12/30/2018 10:30a Family Medicine Adalberto Avila, I10 Essential (primary) Dmitry GUILLERMO MD hypertension E66.9 Obesity, unspecified M85.80 Oth disrd of bone density and structure, unspecified site Z13.6 Encounter for screening for cardiovascular disorders Z13.1 Encounter for screening for diabetes mellitus Z12.11 Encounter for screening for malignant neoplasm of colon Office Visit 11/23/2018 10:45a [facility] M75.42 Impingement Office MD Yuli syndrome of left shoulder M75.102 Unsp rotatr-cuff tear/ruptr of left shoulder, not trauma M25.571 Pain in right ankle and joints of right foot Q66.51 Congenital pes planus, right foot Assessments Date Code Description Provider 05/16/2019 E66.9 Obesity, unspecified Adalberto Avila MD 05/16/2019 I10 Essential (primary) hypertension Adalberto Avila MD 05/16/2019 E78.5 Hyperlipidemia, unspecified Adalberto Avila MD 05/16/2019 N95.2 Postmenopausal atrophic vaginitis Adalberto Avila MD 05/16/2019 Z12.31 Encounter for screening mammogram for malignant Adalberto Avila MD neoplasm of breast 12/30/2018 I10 Essential (primary) hypertension Adalberto Avila MD 12/30/2018 E66.9 Obesity, unspecified Adalberto Avila MD 12/30/2018 M85.80 Other specified disorders of bone density and Adalberto Avila MD structure, uns 12/30/2018 Z13.6 Encounter for screening for cardiovascular Adalberto Avila MD disorders 12/30/2018 Z13.1 Encounter for screening for diabetes mellitus Adalberto Avila MD 12/30/2018 Z12.11 Encounter for screening for malignant neoplasm Adalberto Avila MD of colon 11/23/2018 M75.42 Impingement syndrome of left shoulder Yuli Coffman MD 11/23/2018 M75.102 Unspecified rotator cuff tear or rupture of Yuli Coffman MD left shoulder, n 11/23/2018 M25.571 Pain in right ankle and joints of right foot Coffman, Charley, MD 11/23/2018 Q66.51 Congenital pes planus, right foot Yuli Coffman MD Plan of Treatment Future Appointment(s):09/12/2019 10:45 am - Adalberto Avila MD at [facility] RD05/16/2019 - Adalberto Avila MDE66.9 Obesity, [id number] Essential ( primary) tgynqmobjnwrU07.5 Hyperlipidemia, oqovqnakxwvS45.2 Postmenopausal atrophic vaginitisNew Medication:Estrogel 0.75 mg/1.25 GM (0.06%) - apply 0.75mg qdZ12.31 Encounter for screening mammogram for malignant neoplasm of breastNew Xrays:Mammography, Screening Bilateral Mammogram, Ordered: 05/16/19 Functional Status Description No Information Available Mental Status Description No Information Available Referrals Refer to Reason for Referral Status Appt Date Timur Flowers MD Scheduled 02/28/2019 [address] [facility] [address] [place] [address] [phone] Cedric Degroot MD Patient Declined [address], [address] [place] [id number] [phone] Jd Perez M.D. pes planus Closed 11/24/[address] [place] [address] [phone]
[2019-05-28 10:19] VITALS: BP 155/82
[2019-05-28] MEDS ORDERED: Tetan/Diph/Pertus SYR(Tdap)* 0.5 ML SYR(BOOSTRIX) use SYR IM ONE (11:11)
[2019-05-28] MEDS ORDERED: Lidocaine 2% w EPI 1:100,000* 20 ML MDV VIAL INJ ONE (11:11)
--- NOTE | 2019-05-28 11:22 | UC ---
Lower Extremity/Ankle HPI - HPI Summary HPI Summary: 63 yo female stepped on a splinter about a week ago portion of it removed + pain and swelling Td not up to date no hx DM - History of Current Complaint Chief Complaint: UCSkin Stated Complaint: RIGHT FOOT FOREIGN BODY Time Seen by Provider: 05/28/19 11:05 Hx Obtained From: Patient Onset/Duration: Sudden Onset, Lasting Days Severity Initially: Mild Severity Currently: Moderate Pain Intensity: 2 - at rest Aggravating Factor(s): Standing, Ambulation Alleviating Factor(s): Rest, Elevation Able to Bear Weight: Yes - Allergies/Home Medications Allergies/Adverse Reactions: Allergies Allergy/AdvReac Type Severity Reaction Status Date / Time sulfamethoxazole Allergy Unknown Verified 05/28/19 10:15 [From Bactrim] Reaction Details trimethoprim [From Bactrim] Allergy Unknown Verified 05/28/19 10:15 Reaction Details PMH/Surg Hx/FS Hx/Imm Hx Cardiovascular History: Hypertension - Surgical History Surgical History: Yes Surgery Procedure, Year, and Place: malignant melenoma x3, thigh, low back. TENDON REPAIR RIGHT THUMB. LEFT KNEE - Family History Known Family History: Positive: Hypertension - Social History Alcohol Use: Rare Substance Use Type: None Smoking Status (MU): Never Smoked Tobacco Review of Systems All Other Systems Reviewed And Are Negative: Yes Constitutional: Positive: Negative Skin: Positive: Negative Eyes: Positive: Negative ENT: Positive: Negative Respiratory: Positive: Negative Cardiovascular: Positive: Negative Gastrointestinal: Positive: Negative Genitourinary: Positive: Negative Motor: Positive: Negative Neurovascular: Positive: Negative Musculoskeletal: Positive: Negative Neurological: Positive: Negative Psychological: Positive: Negative Physical Exam Triage Information Reviewed: Yes Appearance: Well-Appearing, No Pain Distress, Well-Nourished Vital Signs: Initial Vital Signs Temp 97.8 F 05/28/19 10:15 Pulse 84 05/28/19 10:15 Resp 18 05/28/19 10:15 BP 155/82 05/28/19 10:15 Pulse Ox 97 05/28/19 10:15 Vital Signs Reviewed: Yes Eyes: Positive: Conjunctiva Clear ENT: Positive: Hearing grossly normal. Negative: Nasal congestion, Nasal drainage, Tonsillar exudate, Trismus, Muffled voice, Hoarse voice Neck: Positive: Supple, Nontender Respiratory: Positive: Lungs clear, Normal breath sounds, No respiratory distress, No accessory muscle use Cardiovascular: Positive: RRR, No Murmur, Pulses Normal Musculoskeletal: Positive: ROM Intact, Other: - antalgic gait Neurological: Positive: Alert Psychological Exam: Normal Skin Exam: Other - see iomage Images Feet (Multiple View): 1 - swollen tender/unable to see FB Procedures - Procedure Summary Procedure Summary: Attempted FB removal right foot procedure explained TO sterile prep anesth with 2% lido + epi unroof area of FB entry 1 drop of pus expressed unable to visualize FB or feel it with probe sterile dressing applied Lower Extremity Course/Dx - Differential Dx/Diagnosis Provider Diagnosis: Foreign body in right foot with infection Discharge ED - Sign-Out/Discharge Documenting (check all that apply): Patient Departure All imaging exams completed and their final reports reviewed: No Studies - Discharge Plan Condition: Stable Disposition: HOME Prescriptions: Cephalexin CAP* [Keflex CAP*] 500 mg PO QID #28 cap Patient Education Materials: Soft Tissue Foreign Body (ED) Referrals: Justin Hensley MD [Medical Doctor] - If Needed Additional Instructions: I suspect you have a retained foreign body in your right foot I suggest warm soapy soaks 4x day crutches with non wt bearing elevation keflex 500 mg 4x day to ER for worsening symptoms see a surgeon next week for treatment - Billing Disposition and Condition Condition: STABLE Disposition: Home
== END 2019-05-28 11:59 | disposition home or self-care (01) ==
LOC: UCCORT 10:03
DX: S90.851A Superficial foreign body, right foot, initial encounter (principal); L08.9 Local infection of the skin and subcutaneous tissue, unspecified; W45.8XXA Other foreign body or object entering through skin, initial encounter; Y93.9 Activity, unspecified; Y92.9 Unspecified place or not applicable; Z88.1 Allergy status to other antibiotic agents; I10 Essential (primary) hypertension
CPT/HCPCS: 90471; 90715; 99213; G0463